=== PATIENT | female | born 1970 | race African-American/Black ===

== ENCOUNTER 2018-03-29 08:57 | Day surgery (SDC) | payer MEDICAID, OTHER ==
[~2018-03-29 08:57] MED LIST: ACETAMINOPHEN 1,000 MG/100 ML INJ IV ONE; DEXAMETHASONE SOD PHOS 4 MG/ML VIAL ONE; FAMOTIDINE/PF 20 MG/2 ML VIAL ONE; FENTANYL 250MCG/5ML VIAL ONE; KETOROLAC TROMETHAMINE 30 MG/1ML VIAL ONE; LACTATED RINGERS 1,000 ML IV.SOLN IV ONE; LIDOCAINE HCL/PF 2% 100 MG/5 ML VIAL IJ ONE; MIDAZOLAM HCL 2 MG/2 ML VIAL ONE; ONDANSETRON HCL/PF 4 MG/ 2ML VIAL ONE; PROPOFOL 200 MG/20 ML VIAL IV ONE; ROCURONIUM BROMIDE 10 MG/ML 5ML VIAL ONE; SEVOFLURANE 250 ML LIQUID IH ONE; SUCCINYLCHOLINE CHLORIDE 20 MG/ML 10ML VIAL ONE; SUGAMMADEX 200 mg/2mL 200 MG/2 ML VIAL IV ONE; ceFAZolin SODIUM 1 GM VIAL ONE
[2018-03-29] MEDS ORDERED: ENOXAPARIN SODIUM 40 MG/0.4 ML DISP.SYRIN SQ ONE (09:18)
[2018-03-29] MEDS ORDERED: LACTATED RINGERS 1,000 ML IV ONE (09:19)
[2018-03-29] MEDS ORDERED: FAMOTIDINE/PF 20 MG/2 ML VIAL ONE (09:19)
[2018-03-29] MEDS ORDERED: LEVALBUTEROL HCL 1.25 MG/3 ML AMPUL.NEB NEB ONE (09:20)
[2018-03-29] MEDS ORDERED: SCOPOLAMINE HYDROBROMIDE 1.5MG/72HR PATCH TD ONE ×2 (09:21→10:19)
[2018-03-29] MEDS ORDERED: MIDAZOLAM HCL 2 MG/2 ML VIAL ONE (12:16)
[2018-03-29] MEDS ORDERED: HYDROmorphone HCL/PF 1 MG/ML DISP.SYRIN ONE (12:37)
== END 2018-03-29 13:21 | disposition other institution (70) ==
LOC: OPSURG 08:57
PROVIDERS: ATTEND Surgery
DX: E66.01 Morbid (severe) obesity due to excess calories (principal); Z68.42 Body mass index [BMI] 45.0-49.9, adult; E11.9 Type 2 diabetes mellitus without complications; I10 Essential (primary) hypertension; K21.9 Gastro-esophageal reflux disease without esophagitis; G47.30 Sleep apnea, unspecified; M19.90 Unspecified osteoarthritis, unspecified site
CPT/HCPCS: 43235; J0330; J0690; J1100; J1170; J1650; J1885; J2001; J2250; J2405; J2704; J7614; S0028; 43775; A9270-GY; J7120

== ENCOUNTER 2018-03-29 13:24 | Inpatient (IN) | payer MEDICAID, OTHER ==
[2018-03-29] MEDS ORDERED: PROMETHAZINE HCL 25 MG in 0.9 % SODIUM CHLORIDE 50 ML IV PRN (13:28)
[2018-03-29] MEDS ORDERED: LEVALBUTEROL HCL 1.25 MG/3 ML AMPUL.NEB NEB PRN (13:28)
[2018-03-29] MEDS ORDERED: KETOROLAC TROMETHAMINE 30 MG/1ML VIAL IVP PRN (13:28)
[2018-03-29] MEDS ORDERED: fentaNYL CITRATE/PF 100 MCG/ 2ML AMP IVP PRN (13:28)
[2018-03-29] MEDS ORDERED: ONDANSETRON HCL/PF 4 MG/ 2ML VIAL IVP PRN (13:28)
--- NOTE | 2018-03-29 14:10 | History and Physical Report ---
History of Present Illnes - History of Present Illness Reason for Visit: S/P Gastric Sleeve History of Present Illness: Patient is a 47-year-old white female with a BMI > 47.19 who has tried multiple diets and exercises with no benefit. She states that she has struggled with her weight for many years. She also states that she has battled depression and had a suicide attempt after losing her daughter in 2008. It was decided between her and her surgeon that they would move forward with Gastric Sleeve. Patient was cleared by Pulmonology in 2017- patient has a history of TORIE with CPAP @ [id number]. She was cleared by Cardiology in November 2017 with an Ejection Fraction of 70%. Patient is being admitted today s/p gastric sleeve procedure that went well with no complications. Patient will be admitted for post surgical monitoring. - Past Medical History Cardiac: HTN, Hyperlipidemia Pulmonary: Sleep Apnea [employer]: denies: CVA, Seizure Gastrointestinal: GERD Heme/Onc: denies: Anemia NOS, Iron deficiency anemia Hepatobiliary: denies: Hep A/B/C Psych: Depression, Other (PTSD) Musculoskeletal: Chronic low back pain Rheumatologic: Fibromyalgia Infectious Disease: Herpes simplex 2 ENT: denies: Sinusitis Renal/: denies: Acute renal failure Endocrine: Diabetes, obesity Dermatology: denies: Eczema, Cellulitis Grav: 6 Para: 3 Ab: 3 - Past Surgical History Past Surgical History: , Other (finger- carpal tunnel), Other (Knee- right meniscal repair) - Past Family History Mother Family History: Hypertension Father Family History: Other (hepatitis) - Past Social History Smoke: No Alcohol: Rare Drugs: None Lives: With Family Domestic Violence: Negative - Health Maintenance Health Maintenance: Cholesterol, Mammogram. denies: Influenza Vaccine, HIV Influenza Vaccine: No, Patient Refused Pneumonia Vaccine: No Resuscitation Status: Resusciation Status Resuscitation Status Full Code - Unable to Obtain History Unable to Obtain: No Review of Systems - Review of Systems Constitutional: negative: Fever, Chills Eyes: negative: pain, vision change ENT: negative: Ear Pain, Ear Discharge, Throat Pain Respiratory: negative: Cough, Shortness of Breath, SOB with Excertion Cardiovascular: negative: Chest Pain, Palpitations Gastrointestinal: Nausea, Abdominal Pain (s/p gastric sleeve) Genitourinary: negative: Dysuria Musculoskeletal: Back Pain (chronic) Skin: negative: Rash Neurological: negative: Incoordination, Confusion - Medications/Allergies Allergies/Adverse Reactions: Allergies Allergy/AdvReac Type Severity Reaction Status Date / Time latex Allergy Verified 03/29/18 13:27 lisinopril Allergy Verified 03/29/18 13:27 morphine Allergy Verified 03/29/18 13:27 valsartan Allergy Verified 03/29/18 13:27 Current Inpatient Medications: Current Inpatient Medications Cefazolin Sodium/Dextrose (Cefazolin 1 G/50 Ml-Dextrose) 1 gm IV Q8H [facility] Stop: 03/30/18 03:01 Enoxaparin Sodium (Lovenox) 40 mg SQ QD [facility] Stop: 04/12/18 13:59 Famotidine (Pepcid) 20 mg IVP BID [facility] Stop: 04/02/18 20:59 Fentanyl Citrate () 50 mcg IVP Q2H PRN PRN Reason: MODERATE PAIN Stop: 04/02/18 13:27 Promethazine HCl 25 mg/ Sodium (Chloride) 51 mls @ 600 mls/hr IV Q6 PRN PRN Reason: Nausea / Vomiting Stop: 04/02/18 13:27 Sodium Chloride (Normal Saline) 1,000 mls @ 150 mls/hr IV Q8H [facility] Ketorolac Tromethamine (Toradol) 30 mg IVP Q6 PRN PRN Reason: For Mild Pain Stop: 04/02/18 13:27 Levalbuterol HCl (Xopenex) 1.25 mg NEB Q4 PRN PRN Reason: SOA, Dyspnea, or Wheezing Stop: 04/02/18 13:27 Miscellaneous (Chem Sticks) 1 each MC Q6H [facility] Miscellaneous (Patient Own Med) 1 each PO DAILY [facility] Ondansetron HCl (Zofran 4 Mg/2 Ml) 4 mg IVP Q6H PRN PRN Reason: Nausea / Vomiting Stop: 04/02/18 13:27 Oxycodone/Acetaminophen (Percocet 5-325 Mg Tablet) 1 each PO TID PRN PRN Reason: PAIN Prazosin HCl (Minipress) 1 mg PO HS [facility] Exam - Exam Vital Signs: Vital Signs (72 hours) 03/29/18 13:36 Temperature 99 F Pulse Rate [ 95 H Right] Respiratory 20 Rate Blood Pressure 151/80 [Right Arm] O2 Sat by Pulse 96 Oximetry General: Alert, Oriented to Person, Oriented to Place, Oriented to Time, Cooperative, No acute distress, Obese HEENT: Atraumatic, PERRLA, Mouth Mucous membr. moist/Mena, Nose Mucous membr. moist/Mena Neck: Normal Range of Motion. No: Stridor Carotids: no bruit Lungs: Clear to auscultation, Normal air movement, Speaks full Sentences. No: Wheezes, Rales Cardiovascular: Regular rate, Normal S1, Normal S2, No murmurs Abdomen: Soft, Decreased Bowel Sounds. No: Distended, Rigid Integumentary: Normal, Mena, Warm, Dry Extremities: No edema, Normal pulses, No tenderness/swelling Neurological: Normal gait, Normal speech, Strength Equal Bilat, Sensation intact Psych/Mental Status: Mental status NL, Mood NL, Appropriate Affect Assessment/Plan - Assessment/Plan (1) Chronic back pain Status: Acute Current Visit: Yes Qualifiers: Back pain location: low back pain Back pain laterality: bilateral Sciatica presence: without sciatica Qualified Code(s): M54.5 - Low back pain; G89.29 - Other chronic pain Assessment: Stable with home meds Plan: Will continue home medication but change it to PRN (2) Depression Status: Acute Current Visit: Yes Qualifiers: Depression Type: unspecified Qualified Code(s): F32.9 - Major depressive disorder, single episode, unspecified Assessment: Stable on home medications Plan: Will continue Prazosin and patients Trintellix (3) Hyperlipidemia Status: Acute Current Visit: Yes Qualifiers: Hyperlipidemia type: pure hypercholesterolemia Qualified Code(s): E78.00 - Pure hypercholesterolemia, unspecified; E78.0 - Pure hypercholesterolemia Assessment: Stable on home meds Plan: Will hold home med during hospitalization (4) Hypertension Status: Acute Current Visit: Yes Qualifiers: Hypertension type: essential hypertension Qualified Code(s): I10 - Essential (primary) hypertension Assessment: stable on home meds Plan: Plan is to hold blood pressure medication and monitor blood pressure closely (5) Morbid obesity due to excess calories Status: Acute Current Visit: Yes Plan: S/P gastric sleeve (6) Non-insulin dependent type 2 diabetes mellitus Status: Acute Current Visit: Yes Assessment: Last A1C 7.3 Plan: Plan is to hold diabetic meds but will monitor closely with chem sticks every 6 hours (7) Obstructive sleep apnea Status: Acute Current Visit: Yes Assessment: Patient uses CPAP Plan: Plan is to use CPAP at [id number] (8) Osteoarthritis Status: Acute Current Visit: Yes Qualifiers: Osteoarthritis location: multiple joints Osteoarthritis type: unspecified Qualified Code(s): M15.9 - Polyosteoarthritis, unspecified Assessment: stable on home meds Plan: Will continue on pain meds (9) Post traumatic stress disorder (PTSD) Status: Acute Current Visit: Yes Assessment: Stable on home meds Plan: Will continue home medications (10) S/P gastric surgery Status: Acute Current Visit: Yes Assessment: incision sites are intact without redness/erythema, negative for leg pain/tenderness, LCTA, nausea is minimal and little discomfort Plan: Will have patient up and walking, using SCDs while in bed, using incentive spirometer to prevent resp. infection, Pepcid IV for GI upset, IVF until patient can tolerate oral. VTE Assessment - RISK FACTOR SCORE VTE RISK FACTOR SCORES: AGE 40-60 YEARS, OBESITY, MAJOR SURGERY/ANESTHESIA TIME > 1 HOUR (Will give lovenox daily, use SCDs in bed, and frequent ambulation)
[2018-03-29] MEDS: 0.9 % SODIUM CHLORIDE 1,000 ML IV SCH ×2 (14:23→21:30)
[2018-03-29] MEDS: ENOXAPARIN SODIUM 40 MG/0.4 ML DISP.SYRIN SQ SCH (14:24)
[2018-03-29] MEDS: HYDROcodone /APAP 10/325 1 EACH TABLET PO PRN ×2 (15:53→20:23)
[2018-03-29 17:44] VITALS: BMI 45.7
[2018-03-29] MEDS ORDERED: 0.9 % SODIUM CHLORIDE 50 ML IV ONE (20:46)
[2018-03-29] MEDS: PRAZOSIN HCL 1 MG CAP PO SCH (21:19)
[2018-03-29] MEDS: CEFAZOLIN SODIUM/DEXTROSE,ISO 1 GM/50 ML PIGGYBACK IV SCH (21:19)
[2018-03-29] MEDS: FAMOTIDINE/PF 20 MG/2 ML VIAL IVP SCH (21:58)
[2018-03-30] MEDS: oxyCODONE/ACETAMINOPHEN 5/325 TABLET PO PRN ×3 (00:53→21:05)
[2018-03-30] MEDS: CEFAZOLIN SODIUM/DEXTROSE,ISO 1 GM/50 ML PIGGYBACK IV SCH (03:26)
[2018-03-30] MEDS: 0.9 % SODIUM CHLORIDE 1,000 ML IV SCH ×3 (05:11→18:11)
--- NOTE | 2018-03-30 07:47 | Inpatient Progress Note ---
Subjective - Required Recertification Statement I anticipate X number of days because-include discharge plan: 1 day - Review of Systems Events since last encounter: POST OP DAY #1 Post Op Day #1 Patient seems to be doing well. Pain has been doing fair. Patient has had some nausea but no vomiting noted. Has had a small amount of flatus noted. HTN has been stable. Blood sugars have been running 160-170. No hypoglycemic episodes noted. Patient has been ambulating and using incentive spirometry. Patient has sleep apnea but has not been using C-PAP at home. Objective - Exam Vitals and I&O: Vital Signs Temp 97.3 F L 03/30/18 05:59 Pulse 73 03/30/18 06:00 Resp 16 03/30/18 06:00 BP 158/84 03/30/18 05:59 Pulse Ox 94 03/30/18 05:59 Intake & Output 03/29/18 03/29/18 03/30/18 11:59 23:59 11:59 Intake Total 720 Output Total 500 700 Balance 220 -700 Weight 124.7 kg Intake: IV 600 Right Wrist 600 Oral 120 Output: Urine 500 700 Other: Voiding Method Toilet Toilet # Voids 1 2 General: Alert, Oriented to Person, Oriented to Place, Oriented to Time, Cooperative Neck: Supple, No JVD, No thyromegaly Lungs: Clear to auscultation, Normal air movement, Speaks full Sentences Cardiovascular: Regular rate, Normal S1, Normal S2, No murmurs Abdomen: Soft, Other (Post-op teenderness, incision clean and dry.), Decreased Bowel Sounds. No: Distended Skin: Normal Psych/Mental Status: Mental status NL - Results Results: Laboratory Results Urine HCG, Qual Negative (NEGATIVE) 03/29/18 09:45 Assessment/Plan - Assessment/Plan (1) Morbid obesity due to excess calories Status: Acute Current Visit: Yes Assessment: stable post op course. Encouraged to continue to with ambulation and incentive spirometry. (2) Hypertension Status: Chronic Current Visit: Yes Qualifiers: Hypertension type: essential hypertension Qualified Code(s): I10 - Essential (primary) hypertension Assessment: stable off home meds (3) Non-insulin dependent type 2 diabetes mellitus Status: Chronic Current Visit: Yes Assessment: Blood sugars have been stable in the 160-170 range. Will continue to monitor. (4) Obstructive sleep apnea Status: Chronic Current Visit: Yes Assessment: Not wearing C-PAP. Encouraged to revisit this with her PCP upon discharge.
[2018-03-30] MEDS: FAMOTIDINE/PF 20 MG/2 ML VIAL IVP SCH ×2 (08:42→21:06)
[2018-03-30] MEDS: PATIENT OWN MED 1 EACH EACH PO SCH (08:59)
[2018-03-30] MEDS: HYDROcodone /APAP 10/325 1 EACH TABLET PO PRN ×2 (11:31→18:10)
[2018-03-30] MEDS: ENOXAPARIN SODIUM 40 MG/0.4 ML DISP.SYRIN SQ SCH (14:32)
[2018-03-30] MEDS: PRAZOSIN HCL 1 MG CAP PO SCH (21:06)
[2018-03-31] MEDS: 0.9 % SODIUM CHLORIDE 1,000 ML IV SCH (02:30)
[2018-03-31] MEDS: HYDROcodone /APAP 10/325 1 EACH TABLET PO PRN ×2 (06:23→10:52)
--- NOTE | 2018-03-31 08:09 | Discharge Summary ---
Discharge Summary - Discharge Sumary History of Present Illness: Patient is a 47-year-old white female with a BMI > 47.19 who has tried multiple diets and exercises with no benefit. She states that she has struggled with her weight for many years. She also states that she has battled depression and had a suicide attempt after losing her daughter in 2008. It was decided between her and her surgeon that they would move forward with Gastric Sleeve. Patient was cleared by Pulmonology in 2017- patient has a history of TORIE with CPAP @ [id number]. She was cleared by Cardiology in November 2017 with an Ejection Fraction of 70%. Patient is being admitted today s/p gastric sleeve procedure that went well with no complications. Patient will be admitted for post surgical monitoring. Condition at Discharge: Stable Home Medications: Ambulatory Orders Medication Instructions Recorded Atorvastatin Calcium 40 mg PO HS 03/29/18 Clonazepam 1 mg PO BID 03/29/18 Doxycycline Hyclate 50 mg PO BID 03/29/18 Labetalol HCl 300 mg PO BID 03/29/18 Omeprazole 40 mg PO 0700 03/29/18 Tizanidine HCl 4 mg PO Q6 PRN 03/29/18 Venlafaxine HCl [Venlafaxine HCl 150 mg PO DAILY 03/29/18 ER] Vortioxetine Hydrobromide 10 mg PO DAILY 03/29/18 [Trintellix] Hydrocodone/Acetaminophen [[place] 15 ml PO Q6 PRN #250 ml 03/30/18 7.5-325 Tablet] Promethazine HCl [Phenergan] 12.5 mg PO Q6H PRN #250 ml 03/30/18 Metformin HCl 500 mg PO BID #0 03/31/18 Consultations this Visit: None Procedures this Visit: Other (s/p gastric sleeve) Allergies/Adverse Reactions: Allergies Allergy/AdvReac Type Severity Reaction Status Date / Time latex Allergy Verified 03/29/18 13:27 lisinopril Allergy Verified 03/29/18 13:27 morphine Allergy Verified 03/29/18 13:27 valsartan Allergy Verified 03/29/18 13:27 Discharge Summary: Patient did well postoperatively. Patient did not have any postoperative complications. Patient blood pressure was a little bit elevated postoperatively and patient was started on some of her antihypertensive medication that she would taken prior to her admission. Diabetes mellitus remain stable off of her diabetic medications. Blood sugars were in the mid 100 range. No hypoglycemic episodes noted. At the time to discharge patient was stable. Patient was encouraged to continue using her incentive spirometry and to continue to walk. Patient was given instructions on post gastric sleeve diet. Patient will have follow up as ordered. - Final Diagnosis (3) Hypertension Problems: Stop HCTZ, amlodipine, spironolactone, Prazosin. restart labetalol at usual dose. (4) Non-insulin dependent type 2 diabetes mellitus Problems: Patient advised to restart Metformin at 500mg BID and to check BS on a regular basis. (5) Obstructive sleep apnea Problems: stable
[2018-03-31] MEDS: PATIENT OWN MED 1 EACH EACH PO SCH (08:53)
[2018-03-31] MEDS: FAMOTIDINE/PF 20 MG/2 ML VIAL IVP SCH (09:21)
[2018-03-31 10:45] VITALS: BP 174/76
[2018-03-31] MEDS ORDERED: SPIRONOLACTONE 25 MG TABLET PO ONE ×2 (12:01→12:03)
== END 2018-03-31 12:25 | disposition home or self-care (01) | DRG 621 ==
LOC: SOUTH 13:24
PROVIDERS: ADMIT Nurse Practitioner Family; ATTEND Nurse Practitioner Family
DX: E66.01 Morbid (severe) obesity due to excess calories (principal); Z68.42 Body mass index [BMI] 45.0-49.9, adult
CPT/HCPCS: 81025; 99231; 99238; J1650; J1885; J2405; S0028; A9270-GY; J7030